=== PATIENT | female | born 1980 | race American Indian/Alaskan Native ===

== ENCOUNTER 2017-06-18 06:07 | Day surgery (SDC) | payer BC ==
[2017-06-18] MEDS ORDERED: WATER FOR IRRIG STERILE IR ONE (07:25)
--- NOTE | 2017-06-18 07:31 | Anesthesia Consultation ---
Anesthesia Consult and Med Hx Date of service: 06/18/17 - Airway Anesthetic Teeth Evaluation: Good ROM Head & Neck: Adequate Mental/Hyoid Distance: Adequate Mallampati Class: Class II Intubation Access Assessment: Possibly Difficult - Pulmonary Exam CTA: Yes - Cardiac Exam Cardiac Exam: RRR - Pre-Operative Health Status ASA Pre-Surgery Classification: ASA3 Proposed Anesthetic Plan: MAC - Pulmonary Hx Sleep Apnea: Yes - Other Systems Hx Obesity: Yes
--- NOTE | 2017-06-18 07:32 | Anesthesia Day of Surgery ---
Anesthesia Day of Surgery - Day of Surgery Patient Examined: Yes Patient H&P Reviewed: Yes Patient is NPO: Yes
[2017-06-18] MEDS ORDERED: XYLOCAINE MPF 2% ONE (07:34)
[2017-06-18] MEDS ORDERED: ROBINUL ONE (07:34)
[2017-06-18] MEDS ORDERED: KETALAR ONE (07:34)
[2017-06-18] MEDS ORDERED: DIPRIVAN 10 MG/ML IV ONE (07:34)
[2017-06-18] MEDS ORDERED: HURRICAINE ONE 20% TOPICAL SPRAY MM ×2 (07:43→07:45)
[2017-06-18] MEDS ORDERED: NACL 0.9% 1000 ML 1,000 ML IV SCH (08:00)
--- NOTE | 2017-06-18 08:01 | Operative Report ---
Operative Report Operative Report: OPERATIVE REPORT - EGD DATE 06/18/17 SURGERY: Upper endoscopy. SURGEON: Dr. Briggs LINING FELLER BLINDSTITCH: Sylvia Morales DO PRE OP DX: dyspepsia, morbid obesity POST OP DX: small hiatal hernia, dyspepsia TYPE OF ANESTHESIA: MAC. ESTIMATED BLOOD LOSS: None. COMPLICATIONS: None. SPECIMENS REMOVED: None. FINDINGS: 1. Small hiatal hernia. 2. Otherwise, normal esophagus, stomach and first portion of duodenum. INDICATIONS:INDICATION FOR PROCEDURE: Patient is a 36-year-old female with a long history of morbid obesity. She is planned to have a weight loss procedure and is here for preoperative planning EGD. PROCEDURE DETAILS: After consent was reviewed, patient was taken back to the operating room where patient was placed in the left lateral decubitus position and a bite block was placed in the mouth. After a time-out was called, MAC anesthesia was initiated. I then passed the endoscope into her oropharynx, into her esophagus, visualized the entire esophagus, which was all within normal limits. I then visualized the stomach and the first portion of the duodenum and there were no abnormalities I could clearly visualize. I then retroflexed the scope in the stomach and visualized the hiatus and I could see a small hiatal hernia. I then desufflated the stomach and removed the endoscope. Patient tolerated procedure well and was transferred to recovery room in good and stable condition.
--- NOTE | 2017-06-18 08:04 | Discharge Summary ---
Providers - Providers Attending physician: HUMBERTO CRONIN Primary care physician: GARRETT CHIANG Hospitalization Condition: Good Procedures: egd Hospital course: 36 F presented for EGD. She tolerated the procedure well. She was discharged home the same day. Disposition: DC-01 TO HOME OR SELFCARE Core Measure Documentation - Palliative Care Palliative Care/ Comfort Measures: Not Applicable - Core Measures Any of the following diagnoses?: none Exam - Physical Exam Narrative exam: no change - Constitutional Vitals: Temp Pulse Resp BP Pulse Ox 98 F 75 15 152/84 96 06/18/17 07:32 06/18/17 07:32 06/18/17 07:32 06/18/17 07:32 06/18/17 07:32 Plan Additional Instructions: Follow up for preop again. Discuss at time of preop you would like the laparoscopic gastric bypass. Follow up with: GARRETT CHIANG MD [Primary Care Provider] - 7 Days
[2017-06-18 08:47] VITALS: BP 146/98
[2017-06-18] MEDS ORDERED: HURRICAINE ONE 20% TOPICAL SPRAY MM NR (09:00)
== END 2017-06-18 06:08 | disposition home or self-care (01) ==
LOC: GIO 06:07
PROVIDERS: ATTEND Specialist
DX: K44.9 Diaphragmatic hernia without obstruction or gangrene (principal); K21.9 Gastro-esophageal reflux disease without esophagitis; G47.33 Obstructive sleep apnea (adult) (pediatric); E66.01 Morbid (severe) obesity due to excess calories; Z88.0 Allergy status to penicillin; Z68.45 Body mass index [BMI] 70 or greater, adult
CPT/HCPCS: 43235; J2704; J7030